=== PATIENT | male | born 1950 | race African-American/Black ===

== ENCOUNTER 2017-12-04 21:55 | Emergency (ER) | payer MEDICARE, OTHER ==
[~2017-12-04] VITALS: Ht 175.3 cm; Wt 81.6 kg
[2017-12-04 21:54] VITALS: BP 137/83
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
[2017-12-04 22:15] VITALS: BP 137/83
== END 2017-12-04 22:15 | disposition home or self-care (01) ==
LOC: EDBD 21:55 → EMR 22:07
DX: F10.929 Alcohol use, unspecified with intoxication, unspecified (principal)
CPT/HCPCS: 99283

== ENCOUNTER 2020-01-10 06:02 | Emergency (ER) | payer MEDICARE, OTHER ==
[~2020-01-10] VITALS: Ht 185.4 cm; Wt 99.8 kg
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
[2020-01-10 06:14] VITALS: BP 160/94
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
--- NOTE | 2020-01-10 07:34 | NUR ---
ED Nurse Note: Received pt on bed, sleeping. VSS, on RA, NAD.
[2020-01-10 07:36] VITALS: BP 123/74
--- NOTE | 2020-01-10 08:47 | NUR ---
ED Nurse Note: Pt on bed, still sleeping. VSS, on RA, NAD.
[2020-01-10 10:05] VITALS: BP 129/82
--- NOTE | 2020-01-10 12:30 | NUR ---
ED Nurse Note: offered sandwich and drink
[2020-01-10 13:17] VITALS: BP 125/80
[2020-01-10 14:20] VITALS: BP 124/80
--- NOTE | 2020-01-10 14:20 | NUR ---
ER DISCHARGE NOTE: Pt is cleared to be discharged per ERMD, pt is aox4, on room air, with stable vital signs. pt was given dc and prescription instructions, pt was able to verbalize understanding, pt id band removed. pt is able to ambulate with steady gait. pt took all belongings.
== END 2020-01-10 14:20 | disposition home or self-care (01) ==
LOC: EDBD 06:02 → EDUNIT# 06:02 → EMR 06:15
DX: F10.129 Alcohol abuse with intoxication, unspecified (principal); Y90.9 Presence of alcohol in blood, level not specified; Z88.0 Allergy status to penicillin
CPT/HCPCS: 99282